=== PATIENT | female | born 1950 | race Caucasian/White ===

== ENCOUNTER 2018-10-19 08:38 | Emergency (ER) | payer OTHER ==
[~2018-10-19] VITALS: Ht 160 cm; Wt 57.6 kg
== END 2018-10-19 17:35 | disposition home or self-care (01) ==
LOC: ER 08:38
DX: K57.92 Diverticulitis of intestine, part unspecified, without perforation or abscess without bleeding (principal)

== ENCOUNTER 2019-06-13 07:44 | Outpatient (CLI) | payer OTHER | END 2019-06-13 07:51 | disposition home or self-care (01) | LOC: SONOGRAMA 07:44 | DX: R10.84 Generalized abdominal pain (principal) ==

== ENCOUNTER 2022-12-30 13:50 | Outpatient (CLI) | payer OTHER | END 2022-12-30 14:02 | disposition home or self-care (01) | LOC: RAD 13:50 | PROVIDERS: ATTEND Otolaryngology | DX: M54.12 Radiculopathy, cervical region (principal); R05.8 Other specified cough | CPT/HCPCS: 72141 ==